=== PATIENT | female | born 1940 | race Caucasian/White ===

== ENCOUNTER → 2025-06-02 10:09 | Outpatient (REF) | payer OTHER, SELFPAY | LOC: HWRCS 10:09 | PROVIDERS: ATTENDING PHYSICIAN Internal Medicine Cardiovascular Disease; FAMILY PHYSICIAN Internal Medicine | DX: Z95.5 Presence of coronary angioplasty implant and graft (principal); I25.10 Atherosclerotic heart disease of native coronary artery without angina pectoris; I35.1 Nonrheumatic aortic (valve) insufficiency | CPT/HCPCS: 93306 ==